=== PATIENT | male | born 1960 | race Caucasian/White ===

== ENCOUNTER 2018-06-18 11:20 | Outpatient (CLI) | payer OTHER | END 2018-06-18 11:21 | disposition home or self-care (01) | LOC: CTENTCT 11:20 | PROVIDERS: ATTEND Otolaryngology Plastic Surgery within the Head & Neck | DX: J32.9 Chronic sinusitis, unspecified (principal) | CPT/HCPCS: 70486 ==

== ENCOUNTER 2018-07-18 09:05 | Day surgery (SDC) | payer OTHER ==
[2018-07-17 14:27] VITALS: BMI 38.0
[2018-07-18] MEDS ORDERED: Oxymetazoline HCl 0.05% (30 ML BOT) ONE (09:28)
[2018-07-18] MEDS ORDERED: Lidocaine 1% w/Epinephrine 1:100K 20 ML VIAL ONE (11:54)
[2018-07-18] MEDS ORDERED: Bacitracin Zinc Ointment 30 gm TUBE ONE (11:54)
[2018-07-18] MEDS ORDERED: Fentanyl 100 MCG/2 ML VIAL ONE ×3 (12:00→14:02)
[2018-07-18] MEDS ORDERED: Famotidine/PF 20 mg/2ml Vial ONE (12:00)
[2018-07-18] MEDS ORDERED: hydrALAZINE 20 MG/ML VIAL ONE (14:06)
[2018-07-18] MEDS ORDERED: HYDROcodone/Acetaminophen 5/325 mg Tablet ONE (15:15)
[2018-07-18] MEDS ORDERED: Succinylcholine Chloride 20 MG/ML 10 ml SYRINGE FS ONE (15:56)
[2018-07-18] MEDS ORDERED: ePHEDrine 50 MG/ML VIAL ONE (15:56)
[2018-07-18] MEDS ORDERED: Ondansetron PF 4 MG/2 ML Vial ONE (15:56)
[2018-07-18] MEDS ORDERED: Dexamethasone 20 MG/5 ML VIAL ONE (15:56)
[2018-07-18] MEDS ORDERED: PROPOFOL 200 MG/20 ML VIAL ONE (15:56)
[2018-07-18] MEDS ORDERED: Lidocaine 1% PF 5 ML VIAL ONE (15:56)
--- NOTE | 2018-07-19 12:11 | OP ---
DATE OF PROCEDURE: 07/18/2018 PREOPERATIVE DIAGNOSES: 1. Chronic rhinosinusitis. 2. Nasal septal deviation. 3. Bilateral inferior turbinate hypertrophy. 4. Nasal obstruction. POSTOPERATIVE DIAGNOSES: 1. Chronic rhinosinusitis. 2. Nasal septal deviation. 3. Bilateral inferior turbinate hypertrophy. 4. Nasal obstruction. PROCEDURE PERFORMED: 1. Bilateral endoscopic sinus surgery, total ethmoidectomies. 2. Bilateral endoscopic sinus surgery maxillary antrostomies. 3. Bilateral endoscopic sinus surgery, frontal sinusotomies. 4. Bilateral endoscopic sinus surgery, sphenoidotomies. 5. Nasal septoplasty. 6. Bilateral inferior turbinate submucosal resection. ESTIMATED BLOOD LOSS: 50 mL. COMPLICATIONS: None. ANESTHESIA: GETA. DESCRIPTION OF PROCEDURE: Patient was taken to the operating room and placed supine on the table. General endotracheal anesthesia was obtained by the anesthesia staff. Tube was secured in the left lower lip. Patient was then placed in the beach chair position, and Afrin pledgets were placed in the nasal cavity. Injections of 1% lidocaine with 1:100,000 epinephrine were made into the nasal septum as well as the inferior turbinates. Patient was then prepped and draped in standard surgical fashion for nasal surgery. Following this, the Afrin pledgets were removed. A [place] incision was made on the left nasal septum. Submucoperichondrial dissection was performed. The deviated portions of the septum included portions of the cartilage and the bony septum. These isolated areas were removed using 3 cutting rongeurs. There was noted to be a large dorsal and caudal strut, left intact for support of the nose. The mucoperichondrial flaps were then reapproximated using a 4-0 gut stitch. Any straight pieces of cartilage were crushed prior to this and placed between the mucoperichondrial flaps. Following this, the inferior turbinates were then punctured with a submucosal coblation wand, and submucosal coblations were performed of multiple areas of the inferior portion of the anterior inferior turbinate. Please note that the submucosal microdebrider was used to submucosally resect the anterior and inferior portions of the inferior turbinates bilaterally. Following this, the inferior turbinates were gently fractured laterally with a [place] elevator. Following this, the middle turbinates were gently identified and were gently medialized using the [place] elevator. Following this, the uncinate process was identified and was anteriorly fractured using a ball-ended probe bilaterally. Following this, the uncinate was then removed using the microdebrider and up-biting [place] forceps bilaterally. Following this, the natural maxillary sinus ostia were identified by using the ball-ended probe and then was widened using the curved microdebrider and the straight [place] forceps bilaterally. Following this, ethmoidal bulla was identified and was punctured on its medial and inferior aspect and was removed using the straight microdebrider and the up-biting [place] forceps. Following this, the grand lamella was identified and was punctured into the posterior ethmoidal cells. Working from posterior to anterior, the ethmoidal cells were opened in a mucosal sparing technique using the microdebrider and the up-biting [place] forceps. Following this, the sphenoid sinuses were approached through the previous ethmoidectomies, where the sphenoid sinus ostia were identified and was then widened medially and inferiorly using the microdebrider bilaterally. Following this, the 45-degree endoscope and the 40-degree microdebrider blade were used to further open the frontal recess cells as well as identify and open the frontal sinus ostia bilaterally. Following this, the nasal cavity was irrigated. Mirapex was placed in the middle meatus. [place] splints were placed and secured. The patient tolerated procedure well. Job ID: [id number]
== END 2018-07-18 16:28 | disposition home or self-care (01) ==
LOC: SDC 09:05
PROVIDERS: ATTEND Otolaryngology Plastic Surgery within the Head & Neck
PROC: 099S8ZZ Drainage of Right Frontal Sinus, Via Natural or Artificial Opening Endoscopic (ICD-10-PCS; principal; 2018-07-18)
PROC: 09TL0ZZ Resection of Nasal Turbinate, Open Approach (ICD-10-PCS; principal; 2018-07-18)
PROC: 09SM0ZZ Reposition Nasal Septum, Open Approach (ICD-10-PCS; principal; 2018-07-18)
PROC: 099R8ZZ Drainage of Left Maxillary Sinus, Via Natural or Artificial Opening Endoscopic (ICD-10-PCS; principal; 2018-07-18)
PROC: 099X8ZZ Drainage of Left Sphenoid Sinus, Via Natural or Artificial Opening Endoscopic (ICD-10-PCS; principal; 2018-07-18)
PROC: 09TU8ZZ Resection of Right Ethmoid Sinus, Via Natural or Artificial Opening Endoscopic (ICD-10-PCS; principal; 2018-07-18)
PROC: 099Q8ZZ Drainage of Right Maxillary Sinus, Via Natural or Artificial Opening Endoscopic (ICD-10-PCS; principal; 2018-07-18)
PROC: 099T8ZZ Drainage of Left Frontal Sinus, Via Natural or Artificial Opening Endoscopic (ICD-10-PCS; principal; 2018-07-18)
PROC: 09TV8ZZ Resection of Left Ethmoid Sinus, Via Natural or Artificial Opening Endoscopic (ICD-10-PCS; principal; 2018-07-18)
PROC: 099W8ZZ Drainage of Right Sphenoid Sinus, Via Natural or Artificial Opening Endoscopic (ICD-10-PCS; principal; 2018-07-18)
DX: J32.4 Chronic pansinusitis (principal); J34.3 Hypertrophy of nasal turbinates; J34.2 Deviated nasal septum; E03.9 Hypothyroidism, unspecified; I10 Essential (primary) hypertension; E78.5 Hyperlipidemia, unspecified; G47.33 Obstructive sleep apnea (adult) (pediatric); Z88.5 Allergy status to narcotic agent; Z88.8 Allergy status to other drugs, medicaments and biological substances; Z91.011 Allergy to milk products; Z79.899 Other long term (current) drug therapy
CPT/HCPCS: 93005; 93010; J0131; J0360; J1100; J2001; J2405; J2704; J3010; J3490; S0028

== ENCOUNTER 2020-12-11 19:30 | Outpatient (CLI) | payer OTHER | END 2020-12-11 19:31 | disposition home or self-care (01) | LOC: SLEEPLAB 19:30 | PROVIDERS: ATTEND Family Medicine | DX: G47.33 Obstructive sleep apnea (adult) (pediatric) (principal); R53.83 Other fatigue; R40.0 Somnolence; R09.89 Other specified symptoms and signs involving the circulatory and respiratory systems; G31.84 Mild cognitive impairment of uncertain or unknown etiology; R51.9 Headache, unspecified; E66.9 Obesity, unspecified; K21.9 Gastro-esophageal reflux disease without esophagitis; R06.83 Snoring; G47.00 Insomnia, unspecified; R35.1 Nocturia; J44.9 Chronic obstructive pulmonary disease, unspecified; I10 Essential (primary) hypertension | CPT/HCPCS: 95811 ==

== ENCOUNTER 2022-07-24 19:30 | Outpatient (CLI) | payer OTHER | END 2022-07-24 19:31 | disposition home or self-care (01) | LOC: SLEEPLAB 19:30 | PROVIDERS: ATTEND Internal Medicine Critical Care Medicine | DX: G47.33 Obstructive sleep apnea (adult) (pediatric) (principal) | CPT/HCPCS: 95811 ==

== ENCOUNTER 2024-01-31 13:33 | Outpatient (CLI) | payer OTHER | END 2024-01-31 13:34 | disposition home or self-care (01) | LOC: SCSMRI 13:33 | PROVIDERS: ATTEND Family Medicine | DX: S46.011A Strain of muscle(s) and tendon(s) of the rotator cuff of right shoulder, initial encounter (principal); S43.431A Superior glenoid labrum lesion of right shoulder, initial encounter ==

== ENCOUNTER 2024-03-04 15:30 | Outpatient (CLI) | payer OTHER ==
[2024-03-04 16:44] LABS: #Basophils 0.05 10x3/uL (0.0-0.2); %Basophils 0.7 % (0.0-1.0); %Eosinophils 2.5 % (0.0-10.0); %Lymphocytes 32.1 % (21.0-51.0); %Monocytes 8.9 % (0.0-10.0); %Neutrophils 55.2 % (42.0-75.0); Hematocrit 42.2 % (42.0-52.0); Hemoglobin 14.3 g/dL (14.0-18.0); Mean Corpuscular HGB CONC 33.9 g/dL (32.0-36.0); Mean Corpuscular Volume 91.5 fL (78.0-98.0); Mean Platelet Volume 10.6 fL (7.4-10.4); Platelet Count 165 10x3/uL (130-400); RBC Distribution Width 11.2 % (11.5-14.5); Red Blood Cell (RBC) Count 4.61 mill/uL (4.70-6.10)
[2024-03-04 16:57] LABS: Anion Gap 12 mmol/L (10-20); BUN (Urea Nitrogen) 13 mg/dL (8.4-25.7); Calc. Creatinine Clearance 0 mL/min (70-130); Calcium 9.2 mg/dL (7.8-10.44); Carbon Dioxide 26 mmol/L (23-31); Chloride 101 mmol/L (98-107); Estimated GFR 96; Glucose 93 mg/dL (80-115); Potassium 4.2 mmol/L (3.5-5.1); Sodium 135 mmol/L (136-145)
== END 2024-03-04 15:31 | disposition home or self-care (01) ==
LOC: LABBT 15:30
PROVIDERS: ATTEND Orthopaedic Surgery
DX: Z01.818 Encounter for other preprocedural examination (principal); S46.011A Strain of muscle(s) and tendon(s) of the rotator cuff of right shoulder, initial encounter
CPT/HCPCS: 80048; 85025; 93005; 93010

== ENCOUNTER 2024-03-07 06:12 | Day surgery (SDC) | payer OTHER ==
[2024-03-04 15:54] VITALS: BMI 39.5
[2024-03-07] MEDS ORDERED: fentaNYL PF 100 MCG/2 ML SYRINGE ONE (06:20)
[2024-03-07] MEDS ORDERED: Rocuronium Bromide 10 MG/ML (10ML VIAL) ONE ×2 (06:20→06:21)
[2024-03-07] MEDS ORDERED: PROPOFOL 40 ML ONE (06:20)
[2024-03-07] MEDS ORDERED: Midazolam HCl 2 mg/2 ml Vial ONE (06:21)
[2024-03-07] MEDS ORDERED: Lidocaine 1% (PF) 30 ML VIAL ONE ×2 (06:33→08:05)
[2024-03-07] MEDS ORDERED: EPINEPHrine 1 MG/ML VIAL ONE (06:33)
[2024-03-07] MEDS ORDERED: CEFAZOLIN 2 GM VIAL ONE (06:48)
[2024-03-07] MEDS ORDERED: Glycopyrrolate 0.2 MG/ML 5 ML SYRINGE ONE (07:33)
[2024-03-07] MEDS ORDERED: Ropivacaine 0.2% 550 ML 550 ML NERVE BLCK SCH (07:45)
[2024-03-07] MEDS ORDERED: Ondansetron PF 4 MG/2 ML Vial IVP PRN (07:45)
[2024-03-07] MEDS ORDERED: Promethazine HCl 25 MG/ML VIAL IM PRN (07:45)
[2024-03-07] MEDS ORDERED: Zolpidem Tartrate 5 MG TAB PO PRN (07:45)
[2024-03-07] MEDS ORDERED: PHENYLEPHRINE-NS 100 MCG/ML 10 ML SYRINGE ONE (07:50)
[2024-03-07] MEDS ORDERED: Dexamethasone 4 mg/ml Vial ONE (08:01)
[2024-03-07] MEDS ORDERED: Ropivacaine 0.2% HCl/PF 20 ML ONE (08:05)
[2024-03-07] MEDS ORDERED: Ropivacaine 0.5% HCl/PF (150 MG/30 ML VIAL) ONE (08:05)
[2024-03-07] MEDS ORDERED: ePHEDrine Sulfate 50 MG/10 ML VIAL ONE (08:06)
[2024-03-07] MEDS ORDERED: Ketorolac Tromethamine 30 MG (1 mL) VIAL ONE (08:30)
[2024-03-07] MEDS ORDERED: Ondansetron PF 4 MG/2 ML Vial ONE (08:30)
[2024-03-07] MEDS ORDERED: SUGAMMADEX SODIUM 200 MG/2 ML VIAL ONE (09:13)
[2024-03-07] MEDS ORDERED: fentaNYL 50 mcg/mL 1 mL Vial ONE (09:59)
== END 2024-03-07 12:16 | disposition home or self-care (01) ==
LOC: SDC 06:12
PROVIDERS: ATTEND Orthopaedic Surgery
PROC: 0LM14ZZ Reattachment of Right Shoulder Tendon, Percutaneous Endoscopic Approach (ICD-10-PCS; principal; 2024-03-07)
PROC: 3E0T3BZ Introduction of Anesthetic Agent into Peripheral Nerves and Plexi, Percutaneous Approach (ICD-10-PCS; 2024-03-07)
DX: M75.121 Complete rotator cuff tear or rupture of right shoulder, not specified as traumatic (principal); S46.111A Strain of muscle, fascia and tendon of long head of biceps, right arm, initial encounter; I10 Essential (primary) hypertension; E03.9 Hypothyroidism, unspecified; E78.5 Hyperlipidemia, unspecified; G47.33 Obstructive sleep apnea (adult) (pediatric); K58.9 Irritable bowel syndrome, unspecified; Z88.5 Allergy status to narcotic agent; Z88.8 Allergy status to other drugs, medicaments and biological substances; Z91.011 Allergy to milk products; X58.XXXA Exposure to other specified factors, initial encounter
CPT/HCPCS: 29827; 64416; A4306; C1713 ×2; J0171; J1100; J1885; J2250; J2405; J2704; J2795 ×3; J3010